=== PATIENT | female | born 1995 | race Caucasian/White ===

== ENCOUNTER 2016-09-26 20:42 | Emergency (ER) | payer BC, MEDICAID ==
[~2016-09-26] VITALS: Ht 139.7 cm; Wt 81.7 kg
[2016-09-26] MEDS ORDERED: SYNT125T (20:49)
[2016-09-26 22:04] LABS: BASO % 0.4 % (0.0-1.0); EOS % 0.9 % (0.0-3.0); LARGE UNSTAINED CELL # 0.1 K/mm3 (0.0-0.4); LARGE UNSTAINED CELL % 1.5 % (0.0-4.0); LYMPH % 16.1 % (24.0-44.0); MEAN CORPUSCULAR HEMOGLOBIN 32.7 pg (27.0-33.0); MEAN CORPUSCULAR HGB CONC 33.4 g/dl (32.0-36.5); MEAN CORPUSCULAR VOLUME 97.7 fl (80.0-96.0); MONO # 0.3 K/mm3 (0.0-0.8); MONO % 5.1 % (0.0-5.0); NEUTROPHILS # 4.4 K/mm3 (1.8-7.7); PLATELET COUNT, AUTOMATED 253 k/mm3 (150-450); RED CELL DISTRIBUTION WIDTH 13.6 % (11.5-14.5); WHITE BLOOD COUNT 5.8 K/mm3 (4.0-10.0)
[2016-09-26 22:29] LABS: ALBUMIN 3.5 GM/DL (3.2-5.2); ALBUMIN/GLOBULIN RATIO 0.95 (1.00-1.93); ALKALINE PHOSPHATASE 66 U/L (45-117); ALT/SGPT 20 U/L (12-78); AMYLASE 38 U/L (25-115); ANION GAP 9 MEQ/L (8-16); AST/SGOT 19 U/L (15-37); BILIRUBIN,DIRECT < 0.1 MG/DL (0.0-0.2); BILIRUBIN,TOTAL 0.2 MG/DL (0.2-1.0); BLOOD UREA NITROGEN 13 MG/DL (7-18); CALCIUM LEVEL 8.5 MG/DL (8.5-10.1); CARBON DIOXIDE LEVEL 25 MEQ/L (21-32); CHLORIDE LEVEL 109 MEQ/L (98-107); GLOMERULAR FILTRATION RATE > 60.0 (>60); GLUCOSE, FASTING 89 MG/DL (70-105); SODIUM LEVEL 143 MEQ/L (136-145); TOTAL PROTEIN 7.2 GM/DL (6.4-8.2)
[2016-09-26 23:11] VITALS: BP 128/76
--- NOTE | 2016-09-26 23:20 | REPUSA ---
HISTORY: Mid-upper abdominal pain. TECHNIQUE: Right upper quadrant ultrasound. COMPARISON: No pertinent prior studies are available at this time. ULTRASOUND RUQ: Liver: No intrahepatic ductal dilation. Gallbladder: Normally distended and without stones or wall thickening at 1.7 mm. Common bile duct: Nondistended at 3.3 mm. Pancreas: Poorly visualized due to overlying bowel gas. No pancreatic duct dilation. Right kidney: 9.1 x 4.5 x 3.2 cm. No stones or hydronephrosis. Aorta: Normal caliber. Peritoneum: No free fluid. IMPRESSION: No acute right upper quadrant findings.
--- NOTE | 2016-09-27 08:01 | REP ---
Supine abdomen single AP view: Comparison is 07/16/2009. The bowel gas pattern is normal. There are no calcifications. The skeletal structures and soft tissues are unremarkable except for mild lumbar scoliosis convex right, possibly positional. Impression: Normal bowel gas pattern Signed by Pacheco Del Rosario MD 09/27/2016 07:52 A
== END 2016-09-26 23:12 | disposition home or self-care (01) ==
LOC: M ED 20:42
DX: K52.9 Noninfective gastroenteritis and colitis, unspecified (principal); Q90.9 Down syndrome, unspecified; Z97.4 Presence of external hearing-aid; Z79.899 Other long term (current) drug therapy

== ENCOUNTER → 2016-09-26 | Outpatient (REF) | payer BC, MEDICAID ==
[~2016-09-26] MED LIST: SYNT125T
== END ==
LOC: M LAB REF 16:43
PROVIDERS: ATTEND Physician Assistant Medical
DX: R10.9 Unspecified abdominal pain (principal)

== ENCOUNTER → 2017-10-05 | Outpatient (REF) | payer BC, MEDICAID | LOC: M SFHCLACO 09:05 | DX: E03.9 Hypothyroidism, unspecified (principal); Z68.41 Body mass index [BMI] 40.0-44.9, adult | CPT/HCPCS: G0463 ==

== ENCOUNTER → 2019-07-07 | Outpatient (CLI) | payer BC, MEDICAID ==
--- NOTE | 2019-07-07 13:47 | REP ---
FOOT : REASON: No trauma. No priors. FINDINGS: The joint spaces are symmetric and relatively well maintained. There is no evidence of acute fracture or destructive osseous lesion. IMPRESSION: Negative. Electronically Signed by Husam Arnold DO 07/07/2019 02:04 P
== END ==
LOC: M ADAMS 10:43
PROVIDERS: ATTEND Physician Assistant
DX: M79.672 Pain in left foot (principal)

== ENCOUNTER → 2022-07-27 | Outpatient (REF) | payer BC, MEDICAID ==
[2022-07-27 17:46] LABS: APPEARANCE, URINE CLEAR (CLEAR); BACTERIA, URINE AUTO 1+ (NEGATIVE); BILIRUBIN, URINE AUTO NEGATIVE (NEGATIVE); BLOOD, URINE BLOOD 3+ (NEGATIVE); COLOR, URINE RED (YELLOW); GLUCOSE, URINE (UA) AUTO NEGATIVE (NEGATIVE); KETONE, URINE AUTO NEGATIVE (NEGATIVE); LEUKOCYTE ESTERASE, URINE AUTO NEGATIVE (NEGATIVE); NITRITE, URINE AUTO NEGATIVE (NEGATIVE); PROTEIN, URINE AUTO 1+ mg/dL (NEGATIVE); RBC, URINE AUTO TNTC /HPF (0-3); SPECIFIC GRAVITY URINE AUTO 1.006 (1.002-1.035); SQUAMOUS EPITHELIAL CELL UR AU 1 /HPF (0-6); UROBILINOGEN, URINE AUTO 0.2 mg/dL (0.0-2.0); WBC, URINE AUTO 6 /HPF (0-3)
== END ==
LOC: M SFHCADAM 12:16
PROVIDERS: ATTEND Physician Assistant Medical
DX: R31.0 Gross hematuria (principal)

== ENCOUNTER → 2022-07-28 | Outpatient (REF) | payer BC, MEDICAID ==
[2022-07-28 13:47] LABS: BLOOD UREA NITROGEN 15 MG/DL (9-23); CALCIUM LEVEL 8.4 MG/DL (8.5-10.1); CARBON DIOXIDE LEVEL 25 MMOL/L (20-31); CHLORIDE LEVEL 107 MMOL/L (98-107); CREATININE FOR GFR 0.61 MG/DL (0.55-1.30); GLOMERULAR FILTRATION RATE > 60.0 (>60); GLUCOSE, FASTING 81 MG/DL (60-100); POTASSIUM SERUM 4.4 MMOL/L (3.5-5.1); SODIUM LEVEL 138 MMOL/L (136-145)
[2022-07-28 13:51] LABS: HEMATOCRIT 42.4 % (36.0-47.0); HEMOGLOBIN 13.6 g/dl (12.0-15.5); LYMPH # 0.8 10^3/uL (1.5-5.0); MEAN CORPUSCULAR HEMOGLOBIN 31.6 pg (27.0-33.0); MEAN CORPUSCULAR HGB CONC 32.1 g/dl (32.0-36.5); MEAN CORPUSCULAR VOLUME 98.6 fl (80.0-96.0); MONO # 0.4 10^3/uL (0.0-0.8); MONO % 12.3 % (2.0-8.0); NEUTROPHILS # 1.7 10^3/uL (1.5-8.5); NEUTROPHILS % 57.4 % (36.0-66.0); PLATELET COUNT, AUTOMATED 223 10^3/uL (150-450)
== END ==
LOC: M SFHCADAM 08:29
PROVIDERS: ATTEND Physician Assistant Medical
DX: R31.0 Gross hematuria (principal)

== ENCOUNTER → 2022-07-29 | Outpatient (CLI) | payer BC, MEDICAID | LOC: M RAD 07:36 | PROVIDERS: ATTEND Physician Assistant Medical | DX: R31.0 Gross hematuria (principal) ==

== ENCOUNTER → 2022-08-05 | Outpatient (REF) | payer BC, MEDICAID ==
[2022-08-05 13:45] LABS: APPEARANCE, URINE HAZY (CLEAR); BACTERIA, URINE AUTO NEGATIVE (NEGATIVE); BILIRUBIN, URINE AUTO NEGATIVE (NEGATIVE); BLOOD, URINE BLOOD NEGATIVE (NEGATIVE); COLOR, URINE YELLOW (YELLOW); GLUCOSE, URINE (UA) AUTO NEGATIVE (NEGATIVE); KETONE, URINE AUTO NEGATIVE (NEGATIVE); LEUKOCYTE ESTERASE, URINE AUTO 1+ (NEGATIVE); MUCUS, URINE SMALL (NEGATIVE); NITRITE, URINE AUTO NEGATIVE (NEGATIVE); PROTEIN, URINE AUTO NEGATIVE (NEGATIVE); RBC, URINE AUTO 0 /HPF (0-3); SPECIFIC GRAVITY URINE AUTO 1.026 (1.002-1.035); SQUAMOUS EPITHELIAL CELL UR AU 5 /HPF (0-6); UROBILINOGEN, URINE AUTO 0.2 mg/dL (0.0-2.0); WBC, URINE AUTO 5 /HPF (0-3)
== END ==
LOC: M SFHCADAM 09:18
PROVIDERS: ATTEND Physician Assistant Medical
DX: R31.0 Gross hematuria (principal)

== ENCOUNTER → 2024-05-18 | Outpatient (REF) | payer BC, MEDICAID | LOC: M SFHCADAM 08:44 | PROVIDERS: ATTEND Physician Assistant Medical | DX: Z53.9 Procedure and treatment not carried out, unspecified reason (principal) ==

== ENCOUNTER → 2024-05-25 | Outpatient (CLI) | payer BC, MEDICAID ==
[~2024-05-25] MED LIST changes: +ISOVUE-370 76% 100ML VIAL As Ordered ONE
[2024-05-25 12:11] LABS: C REACTIVE PROTEIN QUANTITATIV 1.16 MG/DL (<1.0)
[2024-05-25 12:12] LABS: COMPLEMENT C3 198.6 MG/DL (84.0-160.0)
[2024-05-25 12:13] LABS: COMPLEMENT C4 32.4 MG/DL (12-36); RHEUMATOID FACTOR QUANT < 3.5 IU/ML (<14)
[2024-05-25 13:07] LABS: DRVV SCREEN 35.8 SECONDS; PTT LUPUS TYPE ANTICOAG SCREEN 0.95 (0-1.20)
[2024-05-29 15:43] LABS: LYME TOTAL ANTIBODY CIA <= 0.90 Index (<=0.90)
== END ==
LOC: M RAD 10:36
PROVIDERS: ATTEND Physician Assistant Medical
DX: R76.8 Other specified abnormal immunological findings in serum (principal); R79.82 Elevated C-reactive protein (CRP); L03.116 Cellulitis of left lower limb; Q90.9 Down syndrome, unspecified
CPT/HCPCS: 36415; 73701; 81374; 85652; 85730; 86140; 86160; 86200; 86255; 86431; 86618; Q9967

== ENCOUNTER → 2024-05-25 | Outpatient (CLI) | payer BC, MEDICAID ==
[~2024-05-25] MED LIST changes: -ISOVUE-370 76% 100ML VIAL As Ordered ONE
[2024-05-25 12:13] LABS: INR 1.04; PROTHROMBIN TIME 13.9 SECONDS (12.5-14.5)
[2024-05-25 12:28] LABS: FERRITIN 42.2 NG/ML (7.3-270.7); PERCENT SATURATION 40.8 % (13.2-45.0)
[2024-05-25 12:29] LABS: TOTAL 25(OH) VITAMIN D 51.2 NG/ML (20.0-100.0)
[2024-05-25 12:33] LABS: FOLATE 7.67 NG/ML (>5.4)
[2024-05-29 07:18] LABS: COPPER PLASMA 115 mcg/dL (70-175); SELENIUM PLASMA LEVEL 142 mcg/L (63-160); ZINC PLASMA 64 mcg/dL (60-130)
[2024-05-29 23:52] LABS: VITAMIN A, RETINOL LEVEL 45 mcg/dL (38-98)
== END ==
LOC: M LAB 10:39
PROVIDERS: ATTEND Physician Assistant Medical
DX: K90.0 Celiac disease (principal)

== ENCOUNTER 2024-10-17 10:48 | Day surgery (SDC) | payer BC, MEDICAID ==
[~2024-10-17] VITALS: Ht 149.9 cm; Wt 98.9 kg
[~2024-10-17 10:48] MED LIST changes: +DROS4TAB PO; +LEVOTAB10 PO
[2024-10-17] MEDS ORDERED: LR 1,000 ML IV SCH ×2 (11:00→12:40)
[2024-10-17] MEDS ORDERED: dexAMETHasone 4 MG/ML 1 ML VIAL As Ordered ONE (11:55)
[2024-10-17] MEDS ORDERED: ONDANSETRON 4MG 2ML VIAL As Ordered ONE (11:55)
[2024-10-17] MEDS ORDERED: LIDOCAINE 2% 100 MG/5 ML SDV (FOR ANES.) As Ordered ONE (11:55)
[2024-10-17] MEDS ORDERED: MIDAZOLAM INJ 2 MG/2 ML VIAL As Ordered ONE (11:56)
[2024-10-17] MEDS: CIPRODEX OTIC SUSP 7.5 ML As Ordered ONE (12:31)
[2024-10-17] MEDS: OXYMETAZOLINE 0.05% NASAL SPRAY As Ordered ONE (12:32)
[2024-10-17] MEDS ORDERED: ONDANSETRON 4MG 2ML VIAL IV PRN (12:40)
[2024-10-17 13:30] VITALS: BP 116/64; TEMP 96.8; O2SAT 98
== END 2024-10-17 13:45 | disposition home or self-care (01) ==
LOC: M SDC 10:48
PROVIDERS: ATTEND Otolaryngology
DX: H66.3X3 Other chronic suppurative otitis media, bilateral (principal); Q90.9 Down syndrome, unspecified; E03.9 Hypothyroidism, unspecified; Z79.899 Other long term (current) drug therapy
CPT/HCPCS: 69436; 81025; J1100; J2250; J2405; J3010